=== PATIENT | male | born 1980 | race Caucasian/White ===

== ENCOUNTER 2023-10-19 16:29 | Emergency (ER) | payer OTHER ==
[2023-10-19 16:57] VITALS: BP 157/83; PULSE 90; RESP 18; BMI 22.2
[2023-10-19] MEDS ORDERED: FAMOTIDINE 20 MG/50 ML IVPB 20 MG/50 ML MG IVPB ONE (17:06)
[2023-10-19] MEDS ORDERED: ACETAMINOPHEN INJECTION 100 ML IVPB ONE (17:06)
[2023-10-19] MEDS: ACETAMINOPHEN 1000 MG/100 ML BAG IVPB ONE (17:20)
[2023-10-19] MEDS: SODIUM CHLORIDE 0.9% 500 ML INFUS.BAG IV ONE (17:20)
[2023-10-19 17:28] LABS: HEMATOCRIT 49.6 % (35.4-49); HEMOGLOBIN 16.3 G/dL (11.7-16.9); MCH 28.6 pg (25.7-33.7); MCHC 32.8 g/dl (32.0-35.9); MEAN CELL VOLUME 87.4 fl (80-96); MEAN PLT VOLUME 9.3 fl (7.5-11.1); RBC 5.68 10^6/uL (4.00-5.60); RDW 13.9 % (11.9-15.9); WHITE BLOOD COUNT 8.9 10^3/uL (4.0-10.8)
[2023-10-19] MEDS: FAMOTIDINE 20 MG/50 ML IVPB 20 MG/50 ML MG IVPB ONE (17:35)
[2023-10-19 17:41] LABS: ALBUMIN 4.5 g/dl (3.4-5.0); BILIRUBIN,TOTAL 0.5 mg/dl (0.2-1); CREATININE 0.9 mg/dl (0.6-1.3); MAGNESIUM 1.7 mg/dL (1.8-2.4); POTASSIUM 3.9 mmol/L (3.5-5.1); TOT PROT 6.8 g/dl (6.4-8.2)
[2023-10-19 17:44] LABS: PLATELET ESTIMATE ADEQUATE
[2023-10-19 19:02] VITALS: TEMP 100
== END 2023-10-19 19:06 | disposition home or self-care (01) ==
LOC: FER 16:29
PROC: 3E033GC Introduction of Other Therapeutic Substance into Peripheral Vein, Percutaneous Approach (ICD-10-PCS; principal; 2023-10-19)
PROC: 3E033NZ Introduction of Analgesics, Hypnotics, Sedatives into Peripheral Vein, Percutaneous Approach (ICD-10-PCS; 2023-10-19)
DX: R05.9 Cough, unspecified (principal); R10.33 Periumbilical pain; R50.9 Fever, unspecified; R53.1 Weakness; J02.9 Acute pharyngitis, unspecified; J10.1 Influenza due to other identified influenza virus with other respiratory manifestations; Z20.822 Contact with and (suspected) exposure to COVID-19
CPT/HCPCS: 0241U-QW; 36415; 71045-TC-FY; 80053; 81003; 81015; 83605; 83690; 83735; 85027; 87086; 93005; 99285-25; J0131